=== PATIENT | female | born 1955 | race Caucasian/White ===

== ENCOUNTER 2017-12-01 16:36 | Outpatient (CLI) | payer BC ==
[2017-12-01 17:41] LABS: Hemoglobin 14.3 g/dL (12.0-16.0); Mean Corpuscular HGB CONC 33.3 g/dL (32.0-36.0); Mean Corpuscular Hemoglobin 33.3 pg (27.0-31.0); Mean Platelet Volume 8.1 fL (7.4-10.4); Platelet Count 244 thou/uL (130-400); RBC Distribution Width 12.7 % (11.5-14.5)
[2017-12-01 17:46] LABS: PTT 26.5 SEC (22.9-36.1); Prothrombin Time 12.8 SEC (12.0-14.7)
[2017-12-01 18:17] LABS: Anion Gap 15 mmol/L (10-20); BUN (Urea Nitrogen) 19 mg/dL (9.8-20.1); Calc. Creatinine Clearance 0 mL/min (70-130); Calcium 10.2 mg/dL (7.8-10.44); Carbon Dioxide 25 mmol/L (23-31); Chloride 100 mmol/L (98-107); Estimated GFR-MDRD 51; Glucose 97 mg/dL (80-115); Potassium 3.9 mmol/L (3.5-5.1); Sodium 136 mmol/L (136-145)
== END 2017-12-01 16:37 | disposition home or self-care (01) ==
LOC: LABBT 16:36
PROVIDERS: ATTEND Urology
DX: Z01.812 Encounter for preprocedural laboratory examination (principal); C65.1 Malignant neoplasm of right renal pelvis
CPT/HCPCS: 80048; 85027; 85610; 85730; 93005; 93010

== ENCOUNTER 2017-12-06 10:55 | Day surgery (SDC) | payer BC ==
[2017-12-01 16:48] VITALS: BMI 35.0
[2017-12-06] MEDS ORDERED: Midazolam HCl 2 mg/2 ml Vial ONE (13:36)
[2017-12-06] MEDS ORDERED: CEFTRIAXONE 2GM/50 ML BAG 2 GM in Premix Bag 1 BAG IVPB SCH (13:45)
[2017-12-06] MEDS ORDERED: Fentanyl 100 MCG/2 ML VIAL ONE (14:17)
[2017-12-06] MEDS ORDERED: Iothalamate Meglumine 60% 50 ML VIAL FS ONE (14:30)
--- NOTE | 2017-12-06 16:52 | OP ---
DATE OF PROCEDURE: 12/06/2017 PREOPERATIVE DIAGNOSIS: Left renal pelvic mass. POSTOPERATIVE DIAGNOSIS: Left renal pelvic mass. PROCEDURE PERFORMED: Cystoscopy with left renal pelvic washings, left retrograde, left renal pelvic brushings, left stent placement and right retrograde. SURGEON: Patel Saxena M.D. ANESTHETIC: General. ESTIMATED BLOOD LOSS: 50 mL DRAINS PLACED: 6 x 24 Polaris double-J stent up the left ureter without a string left on it. FINDINGS: The right retrograde study was normal. The bladder showed no obvious tumor, foreign body, or stone. There was a small mucosal line lesion on the anterior wall which is probably related to h er urethral remnant, but did not look at all suspicious. The retrograde study on the left showed nor mal ureter up to the area of the renal pelvis with a large filling defect in the renal pelvis. Prior to doing this, we initially did the washings with some saline and not using any contrast and this al ready did stir up some bleeding from it. So pathology sent was urine from left renal pelvis after wa shings and left renal pelvic brushings. OPERATIVE TECHNIQUE: After obtaining written and verbal consent from the patient after receiving IV antibiotics, she was taken to the operating suite. She was placed in the supine position on the yesenia tment table. PlexiPulses were placed on her lower extremities and turned on. She was given a genera l anesthetic, oral obturator intubation. She was placed in the dorsal lithotomy position and sterile ly prepped and draped. Cystoscopy was performed with a 22 Anguillan sheath. This could not be passed t hrough the urethral meatus, as she did have some urethral stenosis and she was gently dilated with fe male sounds up to 24 Anguillan. The 22-Anguillan sheath was then easily passed into the bladder. The blad dalila was emptied and filled and emptied a number of times and was examined with both a 30-and 70-degre e lens with the findings as above. Next, a 5-Anguillan Pollack catheter was flushed with sterile saline . We had been using sterile water for all of our irrigation fluid and this was maintained, but we di d use saline and flushed our Pollack catheter, advanced this into the left ureter and pushed it up ab out 25 cm and then injected off and on, off and on withdrawing back as we did about 20-25 mL of steri le saline drawing back, injecting and drawing back and it was bloody. This was sent off for cytology from the left renal pelvis. We then went ahead and injected about 4 mL of contrast, so that we coul d fill out the renal pelvis enough to see where this tumor mass was and then through the Pollack cath eter, we placed a small brush and under fluoroscopic vision, brushed this lesion and then sent the br ushings off on slides as well as brushings itself to be examined and pathology. At this point, we lo aded a wire back through our Pollack catheter and removed the Pollack catheter and then we attempted to pass a double lumen ureteral catheter up this side, but because of the size of the ureteral orific e, we could not and for this reason, we felt we could not safely do ureteroscopy, so through our exis ting guidewire, we placed the 6 x 24 Polaris double-J stent, pushing up into place with aid of a push er, so its proximal end coiled in the renal pelvis just above this mass and its distal end coiled in the bladder. There was bloody efflux from it. At this point, we filled and emptied the bladder 5 ti mes with sterile water, brought in a new Pollack catheter that was flushed with a new 20 mL of syring e with some half and half contrast and we did a right retrograde study. It showed a normal ureter no rmal upper collecting system without filling defect. At this point, the bladder was drained, the ins truments were removed. She was taken out of dorsal lithotomy position, awakened, extubated, and take n by stretcher to the recovery room.
[2017-12-06] MEDS ORDERED: Acetaminophen 500 MG TAB ONE (17:07)
--- NOTE | 2017-12-07 08:46 | RAD ---
RETROGRADE URETEROGRAM INTRAOPERATIVE FLUOROSCOPY: History: Urinary tract obstruction. FINDINGS: Intraoperative fluoroscopy is provided for retrograde study as performed by Dr. Saxena. Multiple spot fluoroscopic images show catheter and opacification of a dilated left renal collecting system and a nondilated right renal collecting system. Final image shows double pigtail stent overlying the course of the left ureter. POS: [facility]
== END 2017-12-06 17:05 | disposition home or self-care (01) ==
LOC: SDC 10:55
PROVIDERS: ATTEND Urology
PROC: 0T9480Z Drainage of Left Kidney Pelvis with Drainage Device, Via Natural or Artificial Opening Endoscopic (ICD-10-PCS; principal; 2017-12-06)
PROC: 0T9780Z Drainage of Left Ureter with Drainage Device, Via Natural or Artificial Opening Endoscopic (ICD-10-PCS; principal; 2017-12-06)
DX: C65.1 Malignant neoplasm of right renal pelvis (principal); N35.9 Urethral stricture, unspecified; I10 Essential (primary) hypertension; E78.5 Hyperlipidemia, unspecified; F17.200 Nicotine dependence, unspecified, uncomplicated; Z79.899 Other long term (current) drug therapy; Z88.5 Allergy status to narcotic agent; Z98.51 Tubal ligation status; Z90.710 Acquired absence of both cervix and uterus; Z90.10 Acquired absence of unspecified breast and nipple; Z98.890 Other specified postprocedural states; Z85.3 Personal history of malignant neoplasm of breast; Z85.828 Personal history of other malignant neoplasm of skin
CPT/HCPCS: 74420; 88104; 88108; 88112; C1758; J0131; J0696; J2250; J3010; Q9961

== ENCOUNTER 2017-12-13 09:44 | Day surgery (SDC) | payer BC ==
[2017-12-10 09:59] VITALS: BMI 34.5
[2017-12-13] MEDS ORDERED: Fentanyl 100 MCG/2 ML VIAL ONE ×3 (10:14→15:00)
[2017-12-13] MEDS ORDERED: cefTRIAXone\\ROCEPHIN 1 GM, Syringe 0.4 ML in Sterile Water 9.6 ML SLOW IVP SCH (11:30)
[2017-12-13] MEDS ORDERED: Iothalamate Meglumine 60% 50 ML VIAL FS ONE (12:38)
[2017-12-13] MEDS ORDERED: Midazolam HCl 2 mg/2 ml Vial ONE (13:02)
[2017-12-13] MEDS ORDERED: Promethazine HCl 25 MG/ML VIAL ONE (15:34)
[2017-12-13] MEDS ORDERED: Metoclopramide HCl 10 MG/2 ML VIAL ONE (15:56)
[2017-12-13] MEDS ORDERED: Lidocaine 1% PF 5 ML VIAL ONE (15:56)
[2017-12-13] MEDS ORDERED: Propofol 200 MG/20 ML VIAL ONE (15:56)
[2017-12-13] MEDS ORDERED: Dexamethasone 20 MG/5 ML VIAL ONE (15:56)
[2017-12-13] MEDS ORDERED: Ondansetron HCl/PF 4 MG/2 ML Vial ONE (15:56)
--- NOTE | 2017-12-13 15:56 | RAD ---
RETROGRADE PYELOGRAM 1 VIEW: Date: 12/13/17 HISTORY: 65-year-old female with left hydronephrosis. COMPARISON: 12/06/17. FINDINGS: The previous retrograde pyelogram demonstrated obstruction at the left UPJ, with left hydronephrosis. On the current single image study, there is breathing motion artifact. A left ureteral catheter is v isualized with distal tip at a dilated upper pole gabe. There is extravasation of contrast material around the proximal aspect of the left ureter. There is little contrast in the left renal pelvis. IMPRESSION: 1. Left hydronephrosis is evidence for obstructive uropathy, at the ureteropelvic junction. 2. Extravasation of contrast around the proximal left ureter. POS: [facility]
[2017-12-13] MEDS ORDERED: Ketorolac Tromethamine 30 MG/ML VIAL ONE ×2 (16:24→16:34)
[2017-12-13] MEDS ORDERED: Ondansetron ODT 4 MG TAB ONE (17:00)
--- NOTE | 2017-12-14 06:26 | OP ---
DATE OF PROCEDURE: 12/13/2017 PREOPERATIVE DIAGNOSIS: Left renal pelvic filling defect/tumor. POSTOPERATIVE DIAGNOSIS: Left renal pelvic filling defect/tumor. PROCEDURE PERFORMED: Left rigid and flexible ureteroscopy with biopsy and stent replacement. SURGEON: Patel Saxena M.D. ANESTHETIC: General. ESTIMATED BLOOD LOSS: 50-75 mL FINDINGS: Her ureter is still narrow. We were able to get up to the UPJ with the rigid scope, but c ould not get up to the renal pelvis to see this tumor. With a flexible ureteroscope, we were able to get up to it twice, but could not do it through the sheath. Did two biopsies that we will send off together. It looks papillary in appearance, is certainly not smooth line, is not a stone, it is a tu mor. We were unable to get any ureteral sheath up the ureter. The largest instrument we could get u p there was a dual-lumen catheter. I had difficulty in just getting a flexible ureteroscope up. It is unclear as to why it is so difficult as on looking at the ureter along its length, there is no par ticular area of stricture, somewhat edematous from having a stent in, but just were unable to access it as well as I would have liked. OPERATIVE TECHNIQUE: After obtaining written and verbal consent from the patient after obtaining ant ibiotics IV piggyback, she was taken to the operating suite. She was placed in the supine position o n the treatment table. PlexiPulses placed on her lower extremities and turned on. She was given a g eneral anesthetic, oral intubation, placed in the dorsal lithotomy position, and sterilely prepped an d draped. A electrophysiology scientist KUB was taken with the fluoroscopy unit. Cystoscopy was performed with a 22-Frenc h sheath. This was well lubricated and passed under direct vision through the female urethra into th e urinary bladder with the aid of 30-degree lens, video camera, and monitor. The bladder was filled and emptied a couple of times. The distal end of the indwelling double-J stent was grasped and broug ht out the urethral meatus and a guidewire was fed up across it. Dual-lumen catheter was advanced up over this guidewire up to about mid ureter and then a second guidewire was advanced through this and the dual-lumen catheter was removed. We initially went in with a rigid ureteroscope over a guidewir e to get only up to the UPJ. There was no evidence of any other abnormality noted in the ureter apar t from some edema and inflammation from having a stent in for a week. There was no stone and no obvi ous tumor in the ureter. We then brought in a ureteral sheath. We tried three of them, could not ge t the obturator to go up with any of them. At this point, we dilated the distal ureter with a balloo n dilator and we were still not able to get a ureteral sheath or obturator up across either of the gu idewires. At this point, we then came in and brought in our flexible ureteroscope and placed over on e of the guidewires, able to get this up into the renal pelvis. We took some photos of this lesion a nd did a biopsy of it. Because we did not use a sheath, we had a biopsy and then pulled the scope al l the way out to get enough specimen. The first time we did the biopsy, we tried pulling it through the scope and the specimen was lost. For this reason, we replaced the second guidewire again using a dual-lumen catheter and then removed the dual-lumen catheter and again went up with a flexible urete roscope over a guidewire. We were unable to get up at this point past the probably mid ureter just t rying to go along the guidewire, it would just start to kink and coil at the bladder, so at this poin t, we exchanged wires using a dual-lumen catheter for some stiffer wires and we were able to get back up with the flexible ureteroscope and do another biopsy, still could not get up with either the uret eral sheaths or obturators. At this point, it was felt that we could obtain no other biopsies and we went ahead and removed one of the wire, the other wire we backloaded through the cystoscope and went up with a 5-Andorran catheter, removed the wire, and injected contrast. There was a small amount of e xtravasation up in either proximal ureter/renal pelvic region. Guidewires were placed and initially tried to place a 7-Andorran stent in hopes of getting her ureter to enlarge, but it would not go up, so we again went up with a 6-Andorran 26 cm stent proximal end coiled in the upper pole calyx, the distal end coiled in the bladder when the wire was removed. It was draining adequately bloody stained urin e. The patient was then awakened, extubated, and taken by stretcher to the recovery room.
== END 2017-12-13 17:50 | disposition home or self-care (01) ==
LOC: SDC 09:44
PROVIDERS: ATTEND Urology
DX: C65.2 Malignant neoplasm of left renal pelvis (principal); I10 Essential (primary) hypertension; E78.5 Hyperlipidemia, unspecified; F17.200 Nicotine dependence, unspecified, uncomplicated; Z79.899 Other long term (current) drug therapy; Z88.5 Allergy status to narcotic agent; Z98.51 Tubal ligation status; Z90.10 Acquired absence of unspecified breast and nipple; Z90.710 Acquired absence of both cervix and uterus; Z98.890 Other specified postprocedural states; Z98.891 History of uterine scar from previous surgery; Z85.3 Personal history of malignant neoplasm of breast; Z85.828 Personal history of other malignant neoplasm of skin
CPT/HCPCS: 74420; 88305; 96374; 96375; A4216; C1758; J0696; J1100; J1885; J2001; J2250; J2405; J2550; J2704; J2765; J3010; Q0162; Q9961

== ENCOUNTER 2018-01-10 11:02 | Outpatient (CLI) | payer BC ==
--- NOTE | 2018-01-10 12:02 | RAD ---
PA AND LATERAL CHEST: HISTORY: Renal cancer. FINDINGS: Heart size is within normal limits. There are atherosclerotic changes of the aorta. Lungs are clear of infiltrate. Surgical clips are seen overlying the left chest. A partially visualized left urete ral stent is noted. No pulmonary nodules are seen. There are some minimal arthritic changes of the thoracic spine. IMPRESSION: No active intrathoracic disease. POS: [facility]
== END 2018-01-10 11:03 | disposition home or self-care (01) ==
LOC: RAD 11:02
PROVIDERS: ATTEND Urology
DX: C64.2 Malignant neoplasm of left kidney, except renal pelvis (principal)
CPT/HCPCS: 71046

== ENCOUNTER 2018-02-03 13:13 | Outpatient (CLI) | payer BC ==
[2018-02-03 14:46] LABS: Mean Corpuscular HGB CONC 33.3 g/dL (32.0-36.0); Mean Corpuscular Hemoglobin 32.7 pg (27.0-31.0); Mean Platelet Volume 8.7 fL (7.4-10.4); Platelet Count 292 thou/uL (130-400); RBC Distribution Width 13.4 % (11.5-14.5); White Blood Cell (WBC) Count 7.6 thou/uL (4.8-10.8)
[2018-02-03 14:50] LABS: Bilirubin Negative (Negative); Blood, Urine Negative (Negative); Clarity CLEAR (Clear); Glucose, Urine (Dipstick) Negative (Negative); Leukocyte Negative (Negative); Nitrite Negative (Negative); Protein, Urine (Dipstick) Negative (Neg-Trace); Urobilinogen 0.2 mg/dL (0.2-1.0)
[2018-02-03 14:54] LABS: Bacteria/HPF Rare-Few HPF (None Seen); Hyaline Casts/LPF 0-3 HYALINE CAST LPF (0-3 Hyaline); RBC/HPF 0-3 HPF (0-3); Squamous Epithelial None Seen HPF (0-3); WBC/HPF 0-3 HPF (0-3)
[2018-02-03 14:57] LABS: PTT 27.2 SEC (22.9-36.1)
[2018-02-03 15:09] LABS: ALT (SGPT) 20 U/L (8-55); AST (SGOT) 17 U/L (5-34); Alkaline Phosphatase 107 U/L (40-150); Anion Gap 18 mmol/L (10-20); BUN (Urea Nitrogen) 24 mg/dL (9.8-20.1); Bilirubin, Total 0.6 mg/dL (0.2-1.2); Calc. Creatinine Clearance 0 mL/min (70-130); Calcium 10.3 mg/dL (7.8-10.44); Carbon Dioxide 26 mmol/L (23-31); Chloride 97 mmol/L (98-107); Estimated GFR-MDRD 52; Globulin 3.1 g/dL (2.4-3.5); Glucose 97 mg/dL (80-115); Potassium 3.8 mmol/L (3.5-5.1); Protein, Total 8.1 g/dL (6.0-8.3); Sodium 137 mmol/L (136-145)
== END 2018-02-03 13:14 | disposition home or self-care (01) ==
LOC: LABBT 13:13
PROVIDERS: ATTEND Urology
DX: Z01.818 Encounter for other preprocedural examination (principal); C64.2 Malignant neoplasm of left kidney, except renal pelvis
CPT/HCPCS: 80053; 81001; 85027; 85610; 85730; 87086

== ENCOUNTER 2018-02-03 13:30 | Inpatient (IN) | payer BC ==
[2018-02-03 13:48] VITALS: BMI 35.4
[2018-02-17] MEDS ORDERED: Albumin 5% 0 ML ONE (06:17)
[2018-02-17] MEDS ORDERED: Ketamine 50 MG/ML VIAL ONE (06:17)
[2018-02-17] MEDS ORDERED: Fentanyl 100 MCG/2 ML VIAL ONE ×3 (06:17→15:06)
[2018-02-17] MEDS ORDERED: Midazolam HCl 2 mg/2 ml Vial ONE (06:17)
[2018-02-17] MEDS ORDERED: Fentanyl 250 MCG/5 ML VIAL ONE ×2 (06:17→11:35)
[2018-02-17] MEDS ORDERED: CEFAZOLIN/Water 2 GM/20 ML SYRINGE SLOW IVP SCH (07:00)
[2018-02-17] MEDS ORDERED: Bupivacaine/Epinephrine 0.25% 30 ML VIAL ONE ×2 (07:08→13:25)
[2018-02-17] MEDS ORDERED: Scopolamine 1.5 mg/72 hour Patch ONE (07:09)
[2018-02-17] MEDS ORDERED: CEFAZOLIN/Water 2 GM/20 ML SYRINGE ONE (07:19)
[2018-02-17] MEDS ORDERED: Levofloxacin 500 mg/D5W 100 ml Premix Bag ONE (07:19)
[2018-02-17] MEDS ORDERED: Rocuronium Bromide 50 MG/5 ML VIAL ONE (11:35)
[2018-02-17] MEDS ORDERED: Meperidine HCl/PF 25 MG/ML VIAL SLOW IVP PRN (11:58)
[2018-02-17] MEDS ORDERED: Promethazine HCl 25 MG/ML VIAL SLOW IVP PRN (11:58)
[2018-02-17] MEDS ORDERED: Heparin 5,000 UNITS/ML VIAL ONE (12:22)
[2018-02-17] MEDS ORDERED: HYDROcodone/Acetaminophen 7.5/325 mg Tablet PO PRN (13:33)
[2018-02-17] MEDS ORDERED: Bisacodyl 10 MG SUPP PR PRN (13:33)
[2018-02-17] MEDS ORDERED: hydrALAZINE 20 MG/ML VIAL SLOW IVP PRN (13:33)
[2018-02-17] MEDS ORDERED: Oxybutynin 5 MG TAB PO PRN (13:33)
[2018-02-17] MEDS ORDERED: Hyoscyamine Sulfate SL 0.125 mg Tablet SL PRN (13:33)
[2018-02-17] MEDS ORDERED: diphenhydrAMINE 25 MG CAP PO PRN (13:33)
[2018-02-17] MEDS ORDERED: cefOXitin 1.5 GM in Sodium Chloride 0.9% 100 ML IVPB SCH (14:00)
[2018-02-17] MEDS ORDERED: Heparin 10,000 UNITS/ 10 ML VIAL ONE (14:12)
[2018-02-17] MEDS ORDERED: Lidocaine 1% PF 5 ML VIAL ONE (14:12)
[2018-02-17] MEDS ORDERED: PHENYLEPHRINE-NS 100 MCG/ML 10 ML SYRINGE ONE (14:12)
[2018-02-17] MEDS ORDERED: Ondansetron HCl/PF 4 MG/2 ML Vial ONE (14:12)
[2018-02-17] MEDS ORDERED: PROPOFOL 200 MG/20 ML VIAL ONE (14:12)
[2018-02-17] MEDS ORDERED: Promethazine HCl 25 MG/ML VIAL ONE (14:12)
[2018-02-17] MEDS ORDERED: Dexamethasone 20 MG/5 ML VIAL ONE (14:12)
[2018-02-17] MEDS ORDERED: Glycopyrrolate 0.2 MG/ML 5 ML SYRINGE ONE (14:12)
[2018-02-17] MEDS ORDERED: Morphine 4 MG/ML VIAL SLOW IVP PRN (14:30)
--- NOTE | 2018-02-17 15:43 | RAD ---
PORTABLE UPRIGHT FRONTAL CHEST RADIOGRAPH: Date: 02-17-18 Comparison: 01-10-18 History: Evaluate for left sided pneumothorax, recent left renal surgery. FINDINGS: There is a questionable tiny apical pneumothorax on the left. Evaluation is limited secondary to subc utaneous emphysema which is seen overlying the left hemithorax, primarily laterally, extending into t he left supraclavicular region. No right sided pneumothorax is seen. No lobar consolidation or alveol ar edema. Post-surgical clips are seen in the left upper quadrant of the abdomen. IMPRESSION: Questionable small pneumothorax in left lung apex. Subcutaneous gas noted on the left. Results called to Dr. Arguelles at 2:20 p.m. 02-17-18. Code CR POS: [facility]
[2018-02-17] MEDS ORDERED: cefOXitin 1.5 GM, Admixture Fee 1 EACH in Sterile Water 8.33 ML SLOW IVP SCH (16:00)
[2018-02-17] MEDS: Sodium Chloride 0.9% 1,000 ML IV SCH ×2 (18:09→20:43)
[2018-02-17] MEDS ORDERED: Promethazine HCl 25 MG/ML VIAL IM/IV PRN (19:04)
[2018-02-17] MEDS ORDERED: Ondansetron HCl/PF 4 MG/2 ML Vial SLOW IVP PRN (19:05)
[2018-02-17] MEDS ORDERED: Promethazine HCl 25 MG/ML VIAL IM/IV SCH (19:15)
--- NOTE | 2018-02-17 19:26 | OP ---
DATE OF PROCEDURE: 02/17/2018 SERVICE: Urology. SURGEON: Roddy Arguelles MD DEGREASING SOLUTION MIXER: Leonor Prather MD LINE TENDER FLAKEBOARD: Jessica Ridley. PREOPERATIVE DIAGNOSIS: Left upper tract urothelial carcinoma. POSTOPERATIVE DIAGNOSIS: Left upper tract urothelial carcinoma. PROCEDURE PERFORMED: Laparoscopic left radical nephroureterectomy via the retroperitoneal approach. INDICATION FOR PROCEDURE: Ms. Antony is a 62-year-old white female, who was referred to me by Dr. Taisha sigala for a left upper tract urothelial carcinoma. This was confirmed on biopsy as urothelial carcinom a. It was low grade only without any demonstrable radiographic evidence of muscle invasive disease. Therefore, Medical Oncology did not wish to perform neoadjuvant chemotherapy, although she was refer red for this purpose. As such, she is now proceeding straight to nephroureterectomy to remove her bu lky upper tract disease. Risks and benefits of the surgery have been discussed and she has agreed to proceed forward. DESCRIPTION OF PROCEDURE: After identification of armband and verification of consent, the patient w as brought back to the operating room where she underwent general anesthesia, endotracheal intubation . She was then placed in dorsal lithotomy position and prepped and draped in usual sterile fashion. After appropriate time-out, the urethra was gently dilated with Willy sounds. A Sanchez knife, resectoscope, 26-Vietnamese sheath was inserted with the obturator initially into the bladder and then sw itched out for the Sanchez knife monopolar resectoscope. Resection of the ureteral orifice was perfo rmed on the left side using the cutting current circumferentially around the ureter until the perives ical fat was identified. Once this was done, the coag function was used to cauterize any small bleed ers. Once the ureter was adequately scored, the cystoscope was withdrawn and a 20-Vietnamese 3-way Renae catheter was inserted into the bladder. The patient was then repositioned into the right lateral de cubitus full flank position with the bed flexed, kidney rest up. All pressure points were padded. S he was then again reprepped and draped in the usual sterile fashion. Entry was made into the retrope ritoneum via a small incision just below the 11th rib along the mid axillary line. Blunt finger diss ection was used to penetrate the lumbodorsal fascia into the retroperitoneal space. The psoas muscle was identified and swept free from the surrounding tissues. Once the psoas muscle was completely mo bilized, a Spacemaker balloon was then insufflated into the retroperitoneal space. This was pumped u p to 40 pumps with direct visualization on the inside for monitoring of the correct location. The Sp acemaker balloon was then taken out and the balloon port inflated and secured. Insufflation into ret roperitoneum was started and the additional right-handed 11-mm port was placed near the angle of the 12th rib and the erector muscles for the right hand and a 5-mm port on the left hand closer to the pe ritoneal reflection, but not through the peritoneum. Upon entry into the retroperitoneum, it was judy lized that psoas muscle had gotten swept somewhat medially and pushed medial, so the psoas muscle was dissected free from the overlying Gerota fascia and relayed back onto the erector muscles. No injur y to any nervous tissue or the muscle was identified. The psoas was then dissected free of Gerota, a ll the way up to the diaphragm. The ureter was then dissected free and traced upward until the acces amy renal artery was identified at the lower pole. Dissection was then carried up further until the renal artery was identified with the bifurcated venous structure surrounding. The superior aspect o f the renal vein was dissected free using a LigaSure to cauterize any small vessel. The adrenal vein was identified and spared, so that the adrenal gland could be left in situ. Once the entire renal h ilum was dissected free of its surrounding tissues, the accessory renal artery was first clamped with a Hem-o-nawaf clip and then double clipped with titanium clips, and the intervening tissue divided wit h the LigaSure. The gonadal vein was also clipped and divided with the LigaSure. The vascular loade d 60-mm stapler was then used to completely staple the hilum distal to the adrenal vein to spare the adrenal vein to the adrenal gland. Once this was completed, there was excellent hemostasis along the renal hilum. The superior pole of the kidney was dissected right along the capsule to save the Ash ta fat on the superior aspect of the kidney to spare the adrenal gland. The entire superior pole of the kidney was dissected free and Gerota was left intact on the inferior pole of the kidney, in case there was any potential perirenal extension of the urothelial carcinoma. The kidney was dissected fr ee of all surrounding attachments. The spleen and pancreas were not visualized indicating that they were outside the surgical field. Loops of bowel were identified and there was a small entry made int o the peritoneal space, although there was no actual bowel injury made. The ureter was dissected indira e, also down to the iliac vessels, and the entire kidney was pushed down into the left inguinal space . FloSeal was applied over the vascular structure, where the renal hilum was clamped and over the ad renal bed. The insufflation was then taken down and all ports removed. The fascia was closed with a n interrupted 0 Vicryl on a UR-6 needle, and the skin closed with a 4-0 Monocryl in a subcuticular fa shion. Dermabond was applied and the patient was then taken out of that positioning and placed supin e with a shallow elevation of her left side with the bed slightly flexed to expose the left inguinal space. She was then reprepped and draped again in the usual sterile fashion. A Kay incision was then made through her previous TRAM flap scar over to above the anterior superior iliac spine. Disse ction was then carried down with Bovie electrocautery through the external internal oblique aponeuros is until the retroperitoneal space was identified. The rectus muscle was medial enough that it could be swept medially. The epigastric muscles were also intact and were spared and kept below the rectu s muscle. The external iliac artery was identified and dissected upward until the retroperitoneal sp j carlos was encountered. The kidney was immediately palpated and brought out through the retroperitoneal space on the flank. The periureteral tissues were dissected free to allow for exposure of the urete r down towards the bladder. A Bookwalter was then placed in to allow for adequate exposure and the u reteral dissection was then carried distally all the way up to the bladder. The sigmoid colon was in very close proximity to the bladder and ureter and great care was taken not to cause a thermal injur y onto the sigmoid colon. The ureter was dissected to the level of the bladder, and then with some d issection and elevation of the ureter, it was able to be popped free due to the previous ureteral sca rring. The tip of the ureter was inspected and found that the urothelium was intact indicating the f ull ureter was removed, including the small amount of bladder cuff. The hole was then closed with a [id number] 2-0 Vicryl and two previously placed 2-0 Vicryl stay sutures on the bladder, which we re then tied to each other and to the previous stitch to close up the cystotomy. The bladder was robert led using the continuous bladder irrigation, which had previously been hooked up with the outflow cla mp and the bladder was filled and no leak was identified. The bladder was then drained out and the r etroperitoneal space washed out. Tisseel was applied around the area of the cystotomy and over the i liac vessels. A #19 flat JUAN F drain was then brought in through a small puncture site above the incisi on line. This was placed into the retroperitoneum and away from the iliac vessels and cystotomy, but the bottom end of the drain is towards the pelvis. The retractors were all then taken out and the f ascia closed in two layers with the internal oblique and then external oblique aponeurosis closed in a running fashion using a #1 PDS. Dar was applied to the subcutaneous tissues after the incision had been copiously irrigated and dried. Hemostasis was achieved with Bovie electrocautery prior to t he Dar placement. The skin was then closed with skin charito and an island dressing applied. A s ubcutaneous injection was performed with 0.25% Marcaine with epinephrine. The 20-Vietnamese 3-way Renae catheter was then removed and switched out for an 18-Vietnamese 2-way Renae catheter with 10 mL of steril e water in the balloon. This was hooked up to gravity drainage and secured with a StatLock on to the patient's leg. The patient was then awakened and taken to PACU for recovery in stable condition. COMPLICATIONS: None. ESTIMATED BLOOD LOSS: Approximately 100 mL. RETAINED TUBES AND DRAINS: A #19 JUAN F drain and an 18-Vietnamese Renae catheter. SPECIMENS: Left kidney and ureter. DISPOSITION: The patient will be admitted to the hospital for postoperative recovery. Once she is a dequately recovered, she can be discharged and have her followup on an outpatient basis. She will ne ed to keep the catheter in for at least 7 days with a cystogram done prior to ensure that the cystoto my was completely closed before catheter removal.
[2018-02-17] MEDS: Ondansetron HCl/PF 4 MG/2 ML Vial IVP PRN (19:31)
[2018-02-17] MEDS: Morphine 4 MG/ML VIAL SLOW IVP PRN ×2 (19:45→23:55)
[2018-02-17] MEDS: Mag-Al 1200 mg/1200 mg/30 ML UDCUP PO PRN (20:42)
[2018-02-17] MEDS: Docusate 100 MG CAP PO SCH (20:42)
[2018-02-18] MEDS: Mag-Al 1200 mg/1200 mg/30 ML UDCUP PO PRN
[2018-02-18] MEDS: Ondansetron HCl/PF 4 MG/2 ML Vial IVP PRN (02:36)
[2018-02-18] MEDS: Morphine 4 MG/ML VIAL SLOW IVP PRN ×2 (02:36→05:13)
[2018-02-18] MEDS: cefOXitin 1.5 GM, Admixture Fee 1 EACH in Sterile Water 8.33 ML SLOW IVP SCH ×2 (05:13→12:59)
[2018-02-18 05:41] LABS: #Lymphocytes 1.2 thou/uL (1.20-3.40); #Monocytes 0.8 thou/uL (0.11-0.59); #Neutrophils 8.6 thou/uL (1.40-6.50); %Basophils 0.3 % (0.0-1.0); %Eosinophils 0.1 % (0.0-10.0); %Lymphocytes 11.1 % (21.0-51.0); %Monocytes 7.9 % (0.0-10.0); %Neutrophils 80.6 % (42.0-75.0); Hemoglobin 10.8 g/dL (12.0-16.0); Mean Corpuscular HGB CONC 33.3 g/dL (32.0-36.0); Mean Corpuscular Hemoglobin 32.3 pg (27.0-31.0); Mean Corpuscular Volume 97.1 fl (81.0-99.0); Mean Platelet Volume 7.9 fL (7.4-10.4); Platelet Count 262 thou/uL (130-400); RBC Distribution Width 13.7 % (11.5-14.5); Red Blood Cell (RBC) Count 3.34 mill/uL (4.20-5.40); White Blood Cell (WBC) Count 10.6 thou/uL (4.8-10.8)
[2018-02-18 06:00] LABS: Anion Gap 10 mmol/L (10-20); BUN (Urea Nitrogen) 18 mg/dL (9.8-20.1); Calc. Creatinine Clearance 57 mL/min (70-130); Calcium 8.7 mg/dL (7.8-10.44); Carbon Dioxide 26 mmol/L (23-31); Chloride 105 mmol/L (98-107); Estimated GFR-MDRD 37; Glucose 119 mg/dL (80-115); Potassium 4.2 mmol/L (3.5-5.1); Sodium 137 mmol/L (136-145)
[2018-02-18] MEDS: Sodium Chloride 0.9% 1,000 ML IV SCH ×3 (08:10→23:30)
[2018-02-18] MEDS: Lisinopril/Hydrochlorothiazide 20 mg/12.5 mg Tablet PO SCH (08:10)
[2018-02-18] MEDS: HYDROcodone/Acetaminophen 7.5/325 mg Tablet PO PRN ×4 (08:11→23:27)
[2018-02-18] MEDS: Docusate 100 MG CAP PO SCH ×2 (08:11→21:20)
[2018-02-18] MEDS: Atorvastatin Calcium 40 MG TAB PO SCH (08:11)
--- NOTE | 2018-02-18 12:44 | PRG ---
DATE OF SERVICE: 02/18/2018 SUBJECTIVE: The patient states she is doing pretty well. She did have some fairly severe nausea las t night, which was treated with Phenergan, and she felt much better afterwards. She was made n.p.o. last night, but did not have any further nausea or vomiting after the Phenergan. She has not gotten up out of bed today. She has not passed any gas. She is resting comfortably and states her pain is well controlled with [place] which she took. OBJECTIVE: VITAL SIGNS: Temperature 99.2, pulse 92, respirations 18, blood pressure 108/63, O2 saturation 94% o n 2 liters nasal cannula. GENERAL: No apparent distress, resting comfortably. CARDIOVASCULAR: Regular rate and rhythm. CHEST: No increased work of breathing, bibasilar crackles. ABDOMEN: Soft, appropriately tender to palpation, nondistended. Incision is dressed. JUAN F is serosan guineous. GENITOURINARY: Renae catheter in place, secured with clear yellow urine. EXTREMITIES: No clubbing, cyanosis or edema. SCDs in place. LABORATORY DATA: The full set of labs in the [facility] system, which I reviewed. Of note, the patien t's white count is 10.6 with hemoglobin of 10.8, creatinine is currently 1.42. ASSESSMENT: A 62-year-old white female with left upper tract urothelial carcinoma, status post left laparoscopic nephroureterectomy postoperative day 1. She is doing much better and as expected for he r postoperative recovery. I have asked that she get up out of bed today and start ambulating. She n eeds to keep a Renae catheter in for at least 7 days. She did have a small interval pneumothorax dur ing her surgery which has been treated with nasal cannula. I will have her continue on the nasal can nula. We will plan for another chest x-ray today to ensure that she is having resolution of the pneu mothorax. I have asked her to continue incentive spirometry, keep her pain controlled with p.o. pain medication. PLAN: She can resume clear liquids today, but I would not advance her diet to a regular diet until s he starts passing gas. We will continue to monitor her labs. Dr. Prather will be covering for me ovbell r the weekend and will continue to see the patient in my stead. We are anticipating hopefully a disc harge on Wednesday or Wednesday depending on her progress. The patient does have a mild acute kidney inju ry with a creatinine of 1.42. I will keep her on IV fluids for now despite the clear liquid diet ens ure she is well hydrated. The IV fluids can probably be stopped tomorrow. She is taking in enough p .o. fluids.
--- NOTE | 2018-02-18 14:12 | RAD ---
CHEST 1 VIEW: HISTORY: Assess for pneumothorax. COMPARISON: Radiograph prior day. FINDINGS: There is small volume free air under the hemidiaphragm which on the prior examination notes and was s upposed to be expected due to insufflation. No significant left-sided apical pneumothorax is appreciated. Small volume subcutaneous emphysema is improving. IMPRESSION: 1. No significant apical pneumothorax appreciated on this upright exam. 2. Improving subcutaneous emphysema. 3. Small volume free air under the hemidiaphragms which on the prior examination the notes state katlyn t there was expected air under the hemidiaphragms due to insufflation. POS: [facility]
[2018-02-18] MEDS: diphenhydrAMINE 25 MG CAP PO PRN (21:20)
[2018-02-19] MEDS: diphenhydrAMINE 25 MG CAP PO PRN (04:15)
[2018-02-19] MEDS: Morphine 4 MG/ML VIAL SLOW IVP PRN (04:16)
[2018-02-19 05:32] LABS: #Eosinphils 0.1 thou/uL (0.0-0.7); #Lymphocytes 0.9 thou/uL (1.20-3.40); #Monocytes 0.5 thou/uL (0.11-0.59); #Neutrophils 8.1 thou/uL (1.40-6.50); %Basophils 0.2 % (0.0-1.0); %Eosinophils 1.3 % (0.0-10.0); %Lymphocytes 9.4 % (21.0-51.0); %Monocytes 5.1 % (0.0-10.0); %Neutrophils 84.1 % (42.0-75.0); Hemoglobin 10.2 g/dL (12.0-16.0); Mean Corpuscular HGB CONC 33.9 g/dL (32.0-36.0); Mean Platelet Volume 7.9 fL (7.4-10.4); Platelet Count 223 thou/uL (130-400); RBC Distribution Width 13.5 % (11.5-14.5); White Blood Cell (WBC) Count 9.7 thou/uL (4.8-10.8)
[2018-02-19 05:57] LABS: Anion Gap 8 mmol/L (10-20); BUN (Urea Nitrogen) 13 mg/dL (9.8-20.1); Calc. Creatinine Clearance 59 mL/min (70-130); Calcium 8.3 mg/dL (7.8-10.44); Carbon Dioxide 26 mmol/L (23-31); Chloride 106 mmol/L (98-107); Estimated GFR-MDRD 38; Glucose 94 mg/dL (80-115); Potassium 4.1 mmol/L (3.5-5.1); Sodium 136 mmol/L (136-145)
[2018-02-19] MEDS: Atorvastatin Calcium 40 MG TAB PO SCH (08:56)
[2018-02-19] MEDS: Lisinopril/Hydrochlorothiazide 20 mg/12.5 mg Tablet PO SCH (08:56)
[2018-02-19] MEDS: Sodium Chloride 0.9% 1,000 ML IV SCH ×2 (08:57→16:42)
[2018-02-19] MEDS: Docusate 100 MG CAP PO SCH ×2 (08:57→21:10)
[2018-02-19] MEDS: HYDROcodone/Acetaminophen 7.5/325 mg Tablet PO PRN ×3 (09:01→21:10)
[2018-02-19] MEDS: Promethazine HCl 25 MG/ML VIAL IM/IV PRN ×3 (09:03→21:10)
--- NOTE | 2018-02-19 15:21 | PRG ---
DATE OF SERVICE: 02/19/2018 SUBJECTIVE: The patient did well overnight, but this morning, she has significant pain present all o f her back and neck, not specifically in the abdomen. She walked 3 times yesterday, but she is not d oing so well on the incentive spirometer. Her nausea is gone. She has minimal burping. She does fe el some rumbling in her abdomen, but has not passed gas. PHYSICAL EXAMINATION: VITAL SIGNS: T-max 99.9. Vitals otherwise has been stable. She put 2200 out of urine and only 10 f rom the JUAN F. HEART: Regular rate and rhythm. LUNGS: Clear to auscultation bilaterally. Decreased breath sounds in the left base. ABDOMEN: Her abdomen was softly distended with the incision still covered with a dressing. She did have some bowel sounds present. EXTREMITIES: Her lower extremities are without edema and pink and warm. LABORATORY DATA: Reveal a creatinine of 1.38 from 1.42. Her H&H is stable at 10.2 and 30.0. ASSESSMENT AND PLAN: We have a 62-year-old female status post left retroperitoneal nephroureterectom y with the open portion for a ureterectomy, postop day #2, doing well with some pain issues. We revi ewed the incentive spirometer, and her goal is getting that at least up to a 1000, but she is only 50 0 now and ambulating at least 5 times today. Continue pain medicines and Benadryl as needed. Contin ue clears for now until she passes gas.
[2018-02-20] MEDS: Sodium Chloride 0.9% 1,000 ML IV SCH ×2 (02:16→08:56)
[2018-02-20] MEDS: Promethazine HCl 25 MG/ML VIAL IM/IV PRN (07:16)
[2018-02-20] MEDS: HYDROcodone/Acetaminophen 7.5/325 mg Tablet PO PRN ×3 (07:16→22:10)
[2018-02-20 08:24] LABS: #Eosinphils 0.2 thou/uL (0.0-0.7); #Lymphocytes 0.9 thou/uL (1.20-3.40); #Monocytes 0.6 thou/uL (0.11-0.59); #Neutrophils 7.7 thou/uL (1.40-6.50); %Basophils 0.2 % (0.0-1.0); %Eosinophils 1.9 % (0.0-10.0); %Lymphocytes 9.8 % (21.0-51.0); %Neutrophils 82.2 % (42.0-75.0); Hemoglobin 9.7 g/dL (12.0-16.0); Mean Corpuscular HGB CONC 32.6 g/dL (32.0-36.0); Mean Corpuscular Hemoglobin 32.6 pg (27.0-31.0); Mean Corpuscular Volume 99.8 fl (81.0-99.0); Platelet Count 218 thou/uL (130-400); RBC Distribution Width 13.2 % (11.5-14.5); Red Blood Cell (RBC) Count 2.98 mill/uL (4.20-5.40); White Blood Cell (WBC) Count 9.4 thou/uL (4.8-10.8)
[2018-02-20 08:26] LABS: Anion Gap 12 mmol/L (10-20); BUN (Urea Nitrogen) 11 mg/dL (9.8-20.1); Calc. Creatinine Clearance 68 mL/min (70-130); Calcium 8.4 mg/dL (7.8-10.44); Carbon Dioxide 23 mmol/L (23-31); Chloride 104 mmol/L (98-107); Estimated GFR-MDRD 45; Glucose 87 mg/dL (80-115); Potassium 4.1 mmol/L (3.5-5.1); Sodium 135 mmol/L (136-145)
[2018-02-20] MEDS: Atorvastatin Calcium 40 MG TAB PO SCH (08:54)
[2018-02-20] MEDS: Lisinopril/Hydrochlorothiazide 20 mg/12.5 mg Tablet PO SCH (08:55)
[2018-02-20] MEDS: Docusate 100 MG CAP PO SCH ×2 (08:55→22:11)
[2018-02-20] MEDS: diphenhydrAMINE 25 MG CAP PO PRN ×2 (14:31→22:10)
[2018-02-21] MEDS: HYDROcodone/Acetaminophen 7.5/325 mg Tablet PO PRN ×3 (02:47→12:44)
[2018-02-21] MEDS: diphenhydrAMINE 25 MG CAP PO PRN ×3 (02:47→12:44)
[2018-02-21 05:57] LABS: #Eosinphils 0.3 thou/uL (0.0-0.7); #Lymphocytes 1.5 thou/uL (1.20-3.40); #Monocytes 0.6 thou/uL (0.11-0.59); #Neutrophils 4.7 thou/uL (1.40-6.50); %Basophils 0.3 % (0.0-1.0); %Eosinophils 3.7 % (0.0-10.0); %Lymphocytes 21.4 % (21.0-51.0); %Monocytes 8.7 % (0.0-10.0); Hemoglobin 10.4 g/dL (12.0-16.0); Mean Corpuscular HGB CONC 32.9 g/dL (32.0-36.0); Mean Corpuscular Hemoglobin 32.4 pg (27.0-31.0); Mean Corpuscular Volume 98.6 fl (81.0-99.0); Mean Platelet Volume 7.7 fL (7.4-10.4); Platelet Count 262 thou/uL (130-400); RBC Distribution Width 13.2 % (11.5-14.5); White Blood Cell (WBC) Count 7.2 thou/uL (4.8-10.8)
[2018-02-21 06:31] LABS: Anion Gap 11 mmol/L (10-20); BUN (Urea Nitrogen) 12 mg/dL (9.8-20.1); Calc. Creatinine Clearance 59 mL/min (70-130); Calcium 8.7 mg/dL (7.8-10.44); Carbon Dioxide 26 mmol/L (23-31); Chloride 103 mmol/L (98-107); Estimated GFR-MDRD 39; Glucose 101 mg/dL (80-115); Potassium 3.7 mmol/L (3.5-5.1); Sodium 136 mmol/L (136-145)
[2018-02-21] MEDS: Docusate 100 MG CAP PO SCH (08:03)
[2018-02-21] MEDS ORDERED: Atorvastatin Calcium 20 MG TAB PO SCH (09:00)
[2018-02-21] MEDS: Lisinopril/Hydrochlorothiazide 20 mg/12.5 mg Tablet PO SCH (09:47)
--- NOTE | 2018-02-21 10:02 | PRG ---
DATE OF SERVICE: 02/20/2018 SUBJECTIVE: The patient did well overnight. She has passed gas. She is hungry. Her breathing is stabilized and the oxygen just came off. She has been ambulating, but only four times and she still can barely do 1000 on the incentive spirometer. Her pain is stabilized. OBJECTIVE: VITAL SIGNS: T-max 99.3, current 97.9, 106/74 and heart rate 76, satting 98% on 2 liters. I have not seen when it is off of the oxygen yet. Her urine output was excellent with over 4 liters over the last day. HEART: Regular rate and rhythm. No murmurs, gallops or rubs. LUNGS: Clear to auscultation bilaterally. ABDOMEN: Softly distended with hypoactive bowel sounds. The incision was clean and intact with charito. I took the dressing off. JUAN F had serosanguineous drainage with minimal output. MUSCULOSKELETAL: She had no significant lower extremity edema. ASSESSMENT: We have a 62-year-old female status post left nephroureterectomy, doing well with some decreased pulmonary function, but improving. She can have her diet advanced today. Increase her ambulation and work more on pulmonary toilet. If she continues to do well and is able to stay off the oxygen, then we can anticipate discharge tomorrow after getting her drain out. TOREY
--- NOTE | 2018-02-21 10:08 | PQF ---
CLINICAL DOCUMENTATION IMPROVEMENT CLARIFICATION FORM: ICD-10 Updated PLEASE DO AN ADDENDUM TO THE PROGRESS NOTE WITH ANY DOCUMENTATION UPDATES OR ADDITIONS AND CARRY THROUGH TO DC SUMMARY. THANK YOU. DATE: 02/21 ATTN: DR. LUCÍA YA Please exercise your independent, professional judgment in responding to the clarification form. Clinical indicators are provided on the bottom of this form for your review. Please check appropriate box(s): PROGRESS NOTE DOCUMENTATION DATED 02/18: ASSESSMENT: SHE DID HAVE A SMALL INTERVAL PNEUMOTHORAX DURING HER SURGERY WHICH HAS BEEN TREATED WITH NASAL CANNULA. If possible, please further clarify if this was: [X] Incidental occurrence inherent in the surgical procedure [ ] Complication of the procedure [ ] Other [ ] Unable to determine For continuity of documentation, please document condition throughout progress notes and discharge summary. Thank You. CLINICAL INDICATORS - SIGNS / SYMPTOMS / LABS PN 02/18 DOCUMENTATION OF SMALL PNEUMOTHORAX DURING SURGERY POST-OP CXR 02/17: IMPRESSION: QUESTIONABLE SMALL PNEUMOTHORAX IN LEFT LUNG APEX CXR 02/18: IMPRESSION: 1) NO SIGNIFICANT APICAL PNEUMOTHORAX APPRECIATED RISK FACTORS: LAPAROSCOPIC L RADICAL NEPHROURETERECTOMY VIA THE RETROPERITONEAL APPROACH TREATMENTS: NASAL CANNULA 2-3 L CXR (02/17 & ) THANK YOU! Marcelina (This form is maintained as a part of the permanent medical record) 2015 [employer]. All Rights Reserved Marcelina Lee RN, BSN [email or web address] Office: [phone] TOREY
[2018-02-21 11:39] VITALS: BP 102/67; TEMP 98.7
--- NOTE | 2018-02-22 14:16 | DIS ---
DATE OF ADMISSION: 02/17/2018 DATE OF DISCHARGE: 02/21/2018 ADMITTING DIAGNOSIS: Left upper tract urothelial carcinoma. DISCHARGE DIAGNOSES: Left upper tract urothelial carcinoma. ADMITTING PHYSICIAN: Roddy Arguelles M.D. DISCHARGING PHYSICIAN: Roddy Arguelles M.D. PROCEDURE PERFORMED: Left laparoscopic radical nephroureterectomy. BRIEF HISTORY: Mrs. Antony is a 62-year-old white female who had been worked up by Dr. Patel Saxena and found to have a left upper tract urothelial carcinoma which appeared low grade. Due to the exte nsive size of the tumor, it was elected that she should undergo a left radical nephroureterectomy. S he has elected to do this via laparoscopic approach and has been sent to me for this reason. We have discussed the surgery in detail and she is now here for said surgery. HOSPITAL COURSE: After her surgery (please see operative note for details), the patient was admitted to the hospital for postoperative recovery. She had a Renae catheter in place due to the cystotomy performed during the nephroureterectomy portion and a JUAN F drain. Her pain seemed to be pretty well co ntrolled with [place] 7.5/325 mg tablets. She had some postoperative nausea on postop day 1, but this quickly subsided and she was able to advance her diet from clear liquid diet to a regular diet, which she tolerated well. She was able to get up out of bed and walk around without much problem. She wa s found to have a small apical pneumothorax on the left immediately postoperatively and was placed on nasal cannula oxygen. Repeat chest x-ray after 2 days demonstrated complete resolution of the pneum othorax and the oxygen was discontinued. Her JUAN F continued to put out less and less fluid and was ult imately discontinued on the day of her discharge on 02/21/2018. Her laboratory evaluation remained s table. Her creatinine did demonstrate a small rise up to 1.4 and then stabilization around 1.3. At date of discharge, it was 1.37 presumably from the removal of her left kidney. She did very well oth erwise and was able to ambulate without much difficulty. On 02/21/2018, she was deemed cleared for discharge. Her JUAN F drain was removed. Her JUAN F was only putt ing out between 30-60 mL. She underwent leg bag teaching and Renae catheter care teaching and was di scharged home without further problems with her Renae catheter. DISCHARGE CONDITION: Good. DISPOSITION: Discharge to home with Renae. DISCHARGE MEDICATIONS: Include resuming all of her home medications. In addition, she was given [place] 7.5/325 mg 1-2 tabs p.o. q.4 h. p.r.n. pain, Colace 100 mg p.o. b.i.d. and levofloxacin 250 mg p.o . x1 to take on the day of her followup appointment. DISCHARGE INSTRUCTIONS: Include no heavy lifting, no strenuous activity, no submerging underwater. No driving until the catheter has been removed. She was given an instructional care on her Renae cat heter and is to notify me for any problems with her catheter, significant hematuria, vomiting, severe pain, chest pain, shortness of breath, or any other concerning signs or symptoms the patient may hav e. Her followup will be arranged for Wednesday with a VCUG done prior to remove her catheter. We wi ll carry a followup appointment from there on an outpatient basis.
--- NOTE | 2018-02-23 14:38 | PRG ---
DATE OF SERVICE: 02/21/2018 SUBJECTIVE: The patient states she is feeling very well. She is passing a lot of gas, but has not y et had a bowel movement. Her pain is completely controlled. She has a catheter draining well. She has received leg bag teaching. Her JUAN F has put out minimal amounts of fluid. She has been able to ge t up out of bed and walk without problems. Her creatinine is stable. She feels good and is ready to go home. OBJECTIVE: VITAL SIGNS: Temperature 98.8, pulse 67, respirations 16, blood pressure 100/67, saturation 94% on r oom air. GENERAL: No apparent distress, communicative and alert. CARDIOVASCULAR: Regular rate and rhythm. ABDOMEN: Soft, nontender, nondistended, positive bowel sounds. Incision is clean, dry, and intact. JUAN F serosanguineous. JUAN F was removed. CHEST: No increased work of breathing, scattered bibasilar crackles. GENITOURINARY: Renae catheter in place with clear yellow urine. EXTREMITIES: No clubbing, cyanosis or edema. LABORATORY DATA: The full set of labs in the [email or web address] system, which I have reviewed. Of note, the p atient's white count is 7.2 with hemoglobin of 10.4, creatinine is 1.37. ASSESSMENT AND PLAN: A 62-year-old white female status post left laparoscopic radical nephroureterec gillian postoperative day #4, doing very well. She has met all criteria for discharge. She will need t o go home with her catheter since she has had a cystotomy during the surgery as part of the procedure . She has no evidence of pneumothorax and does not need to be on any more oxygen. Remainder of her labs looked good. We will prepare her discharge and she can follow up with me in a few days with a V CUG to see if she is ready to have her catheter removed.
== END 2018-02-21 14:00 | disposition home or self-care (01) | DRG 657 ==
LOC: SURG A 02-17 05:46 → SJJU 02-17 14:49 → SURG A 02-18 17:57
PROVIDERS: ADMIT Urology; ATTEND Urology
PROC: 0TT14ZZ Resection of Left Kidney, Percutaneous Endoscopic Approach (ICD-10-PCS; principal; 2018-02-17)
PROC: 0TT74ZZ Resection of Left Ureter, Percutaneous Endoscopic Approach (ICD-10-PCS; 2018-02-17)
PROC: 0T174ZB Bypass Left Ureter to Bladder, Percutaneous Endoscopic Approach (ICD-10-PCS; 2018-02-17)
DX: C64.2 Malignant neoplasm of left kidney, except renal pelvis (principal); C66.2 Malignant neoplasm of left ureter; N17.9 Acute kidney failure, unspecified; Z85.3 Personal history of malignant neoplasm of breast; I10 Essential (primary) hypertension; E78.00 Pure hypercholesterolemia, unspecified; F17.210 Nicotine dependence, cigarettes, uncomplicated
CPT/HCPCS: 36415; 71045; 80048; 85025; 88307; A4216; C1727; J0131; J0694; J1100; J1644; J1956; J2001; J2250; J2270; J2405; J2550; J2704; J3010; P9045

== ENCOUNTER 2018-02-14 10:20 | Outpatient (CLI) | payer BC | END 2018-02-14 10:21 | disposition home or self-care (01) | LOC: LABBT 10:20 | PROVIDERS: ATTEND Urology | DX: Z01.818 Encounter for other preprocedural examination (principal); C64.2 Malignant neoplasm of left kidney, except renal pelvis | CPT/HCPCS: 86850; 86900; 86901 ==

== ENCOUNTER 2018-02-23 09:40 | Outpatient (CLI) | payer BC ==
--- NOTE | 2018-02-23 13:22 | RAD ---
VCUG: HISTORY: Left kidney and left ureteral removal secondary to cancer. COMPARISON: None. EXPOSURE: 2.1 minutes. 49.047 Gy per cm2. FINDINGS: Pelvic radiograph demonstrates surgical clips. The patient was administered a total of 310 mL of contrast in a retrograde fashion. Contrast opacifi es an overall normal appearing urinary bladder. there does appear to be a small focus of contained c ontrast what may be beyond the lumen of the bladder. A small contained leak may be present, best dem onstrated on the left oblique projection. After the bladder was adequately distended, the patient di d void spontaneously. The visualized urethra is unremarkable. The patient emptied the rest of the b ladder in the bathroom. The patient was imaged after the procedure. There was a small focus of cont rast present in the midline aspect of the pelvis, which may represent a residual amount of contrast i n the urinary bladder versus a small contained leak. Post procedure image demonstrates this hyperden sity. IMPRESSION: Questionable small contained leak versus residual contrast in the midline of the bladder. Results of the study discussed with Dr. Arguelles on 02/23/2018 at 11:02 a.m. LOLY SANTOS POS: DESTINEY
== END 2018-02-23 09:41 | disposition home or self-care (01) ==
LOC: RAD 09:40
PROVIDERS: ATTEND Urology
DX: R32 Unspecified urinary incontinence (principal)
CPT/HCPCS: 51600; 74455

== ENCOUNTER 2018-10-11 08:16 | Outpatient (CLI) | payer MEDICARE, BC ==
--- NOTE | 2018-10-11 10:26 | RAD ---
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 Left nephrectomy. FINDINGS: Normal cardiac silhouette. The pulmonary vessels and hilum are normal. Costophrenic angles are clear. No consolidation or mass. No pneumothorax or osseous abnormalities. Stable surgical clips project ov er the left hemithorax. IMPRESSION: No acute cardiopulmonary process. POS: PATI
[2018-10-11 11:32] LABS: Anion Gap 12 mmol/L (10-20); BUN (Urea Nitrogen) 22 mg/dL (9.8-20.1); Calc. Creatinine Clearance 0 mL/min (70-130); Calcium 9.9 mg/dL (7.8-10.44); Carbon Dioxide 31 mmol/L (23-31); Chloride 101 mmol/L (98-107); Estimated GFR-MDRD 34; Glucose 94 mg/dL (80-115); Potassium 4.5 mmol/L (3.5-5.1); Sodium 139 mmol/L (136-145)
[2018-10-11] MEDS ORDERED: ISOVUE-370 76%-LOCM 1 ML ONE (11:42)
[2018-10-11 11:58] LABS: Bilirubin Negative (Negative); Blood, Urine Negative (Negative); Clarity CLEAR (Clear); Glucose, Urine (Dipstick) Negative (Negative); Leukocyte Negative (Negative); Nitrite Negative (Negative); Protein, Urine (Dipstick) Negative (Neg-Trace)
[2018-10-11 12:01] LABS: Bacteria/HPF None Seen HPF (None Seen); Hyaline Casts/LPF 0-3 HYALINE CAST LPF (0-3 Hyaline); RBC/HPF None Seen HPF (0-3); Squamous Epithelial None Seen HPF (0-3); WBC/HPF None Seen HPF (0-3)
[2018-10-11 12:12] LABS: Specific Gravity, Urine 1.049 (1.002-1.036)
--- NOTE | 2018-10-11 12:18 | CT ---
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 The patient notes a history of breast cancer status post left mastectomy and chemotherapy 25 years ago. COMPARISON: 11/12/2017. The lung bases are clear. The liver, spleen, pancreas, and adrenal glands are normal. No calcified gallstones are seen. Interval changes of left-sided nephrectomy are seen. No calculi are seen in the right kidney, right ureter, or the urinary bladder. No right side hydroureteral nephrosis is seen. Postcontrast images demonstrate no evidence of right renal mass. There is normal contrast excretion into the right urete r and the urinary bladder. No free air, free fluid, or lymphadenopathy is seen in the abdomen or pelvis. There are vascular becky cifications without evidence of aneurysmal dilatation of the abdominal aorta. The small bowel loops are not abnormally dilated. The patient is post hysterectomy. A few colonic diverticula are present . No osteolytic or osteoblastic lesions are noted. IMPRESSION: No evidence of metastatic disease. POS: DESTINEY
== END 2018-10-11 08:17 | disposition home or self-care (01) ==
LOC: BICCT 08:16
PROVIDERS: ATTEND Urology
DX: C64.2 Malignant neoplasm of left kidney, except renal pelvis (principal)
CPT/HCPCS: 36415; 71046; 74178; 80048; 81001; 88112

== ENCOUNTER 2019-01-03 10:38 | Outpatient (CLI) | payer MEDICARE, BC ==
--- NOTE | 2019-01-03 12:16 | MRI ---
MRI LUMBAR SPINE WITHOUT CONTRAST: Date: 01/03/19 HISTORY: M54.16 lumbar radiculopathy. COMPARISON: None. FINDINGS: No left kidney is appreciated on this examination. Right kidney is without hydroureteronephrosis. Paraspinal musculature is symmetric. No marrow infiltrative process. The conus medullaris terminates at the inferior end plate of L1. No acute fracture or malalignment. Levels are as follows: L1-2: Low grade broad based posterior disc osteophyte complex. No significant neural foraminal or sp inal canal narrowing. L2-3: Normal disc. No neural foraminal or spinal canal narrowing. L3-4: Mild posterior degenerative disc space height loss with broad based very small posterior disc osteophyte complex. Mild facet arthropathy. No significant neural foraminal or spinal canal narrowing . L4-5: Severe facet arthrosis. 2.0 mm anterolisthesis. There is remodeling of the posterior disc with bilateral subforaminal posterior disc osteophyte complexes. This causes mild neural foraminal narrow ing. No nerve root abutment is appreciated. L5-S1: Mild degenerative disc desiccation. Very small central posterior disc protrusion. No signific ant neural foraminal or spinal canal narrowing. Moderate facet arthrosis. IMPRESSION: 1. Low grade spondylosis. No significant neural foraminal narrowing. 2. Mild spinal canal narrowing, 7.0 mm, at L4-5, due to a combination of posterior disc osteophyte c omplex as well as ligamentum flavum hypertrophy and severe facet arthrosis causing 1-2 mm anterolisth esis. POS: TPC
--- NOTE | 2019-01-03 12:18 | RAD ---
LUMBAR SPINE BENDING MINIMUM 4 VIEWS: Date: 01/03/19 HISTORY: Spinal stenosis, lumbar radiculopathy. COMPARISON: MRI same date. FINDINGS: Low grade levoscoliosis. There are surgical clips in the abdomen and pelvis. There is Grade I anterolisthesis of L4 over L5, 2-3 mm, without significant translation with flexion or extension. IMPRESSION: Grade I anterolisthesis of L4 over L5 without significant translation with flexion or extension. POS: TPC
== END 2019-01-03 10:39 | disposition home or self-care (01) ==
LOC: BICMRI 10:38
PROVIDERS: ATTEND Physician Assistant Surgical
DX: M51.16 Intervertebral disc disorders with radiculopathy, lumbar region (principal); M48.061 Spinal stenosis, lumbar region without neurogenic claudication; M47.26 Other spondylosis with radiculopathy, lumbar region; M54.5 Low back pain; M43.16 Spondylolisthesis, lumbar region; M25.78 Osteophyte, vertebrae
CPT/HCPCS: 72120; 72148

== ENCOUNTER 2019-01-24 13:30 | Inpatient (IN) | payer MEDICARE, BC ==
[2019-01-24] MEDS ORDERED: Nitroglycerin 2% Ointment 1 INCH/1 GM Packet ONE (16:18)
[2019-01-24] MEDS ORDERED: Aspirin Chewable 81 MG TAB ONE (16:18)
[2019-01-24] MEDS ORDERED: Acetaminophen 325 MG TAB PO PRN (17:44)
[2019-01-24] MEDS ORDERED: Senokot S 8.6-50 MG TAB PO PRN (17:44)
[2019-01-24] MEDS ORDERED: Sodium Chloride 0.9% 1,000 ML IV SCH (19:15)
[2019-01-24] MEDS ORDERED: Communication Order-Pharmacy FS SCH (19:15)
--- NOTE | 2019-01-24 19:18 | HP ---
PRIMARY CARE PHYSICIAN: Dr. Godoy. CHIEF COMPLAINT: Chest pain. HISTORY OF PRESENT ILLNESS: Ms. Antony is a 63-year-old female, who reported to the emergency room today for intermittent chest pain on and off for the last 4 weeks. She reports that Dr. Smith has told her she has unstable angina, has recently put her on some slow-release nitroglycerin and told her to go to the ER any time she had pain. Reports that she had some pain last night, that lasted about 15 minutes, went to the [facility], was worked up and discharged home. Reports that this morning around 9, she started having the pain again, lasted for about 2 minutes and resolved after taking the nitroglycerin. The patient reports that when she has this pain, she has shortness of breath, diaphoresis, generalized weakness. She reports having a stress test at Dr. Smith's office within the last 2 weeks and reports that she believes that test was negative. Past medical history is pertinent for hypertension, hyperlipidemia, chronic low back pain, history of breast cancer 25 to 26 years ago, and reports that her left kidney removed due to some cancer on the ureter. Dr. Arguelles did that surgery. She denies any chemo or radiation after the nephrectomy, which she reports was 9 months ago. EKG here, no changes. ST segments, normal. Conduction, normal. Rates per minute were 89. [place] is normal. T-waves are normal. ER physician spoke to Dr. Smith, who would like the patient admitted and he will schedule her for a cardiac cath in the a.m. The patient will be admitted for further management. PAST MEDICAL HISTORY: As above; 1. Hyperlipidemia. 2. Hypertension. 3. Unstable angina. 4. Chronic back pain. PAST SURGICAL HISTORY: 1. Mastectomy on the left. 2. Breast reconstruction. 3. Nephrectomy on the left. PSYCHIATRIC HISTORY: Includes depression. SOCIAL HISTORY: Rarely drinks alcohol. Denies drug use. Does smoke half a pack. Reports that she has smoked for last 50 years, but is trying to quit and is down to half-a-pack a day. REVIEW OF SYSTEMS: CONSTITUTIONAL: The patient denies chills, fever. Does report weakness. EYES: Denies any eye pain, any vision changes. ENT: Denies any sore throat, rhinorrhea. CARDIOVASCULAR: Does report chest pain. Reports diaphoresis. Denies palpitations. RESPIRATORY: Denies cough. Reports shortness of breath during chest pain episodes. GI: Denies abdominal pain, nausea, vomiting, diarrhea. MUSCULOSKELETAL: Denies any falls, injuries, in specific musculoskeletal pain. SKIN: Denies any rash, any changes to skin. NEUROLOGIC: Negative review of systems. ENDOCRINE: Negative review of systems. PSYCH: Negative review of systems. All other review of systems are negative unless mentioned in the HPI. PHYSICAL EXAMINATION: VITAL SIGNS: Blood pressure 130/82, pulse is 87, respirations 18, temperature is 98.3, pO2 sats are 97% on room air. CONSTITUTIONAL: The patient is alert and oriented to person, place, and time. The patient is in no distress. HEENT: Head is atraumatic, normocephalic. Eyes; pupils are equal, round, and reactive to light. Extraocular muscles are intact. ENT; mouth exam is normal. Mucous membranes are moist. NECK: Normal range of motion. Trachea is midline. RESPIRATORY/CHEST: Breath sounds are clear. No wheezing. No rales. Chest movement is symmetrical. CARDIOVASCULAR: Regular heart rate and rhythm. Heart sounds are normal. ABDOMEN: Nontender. Bowel sounds are heard. BACK: Normal range of motion. No CVA tenderness. EXTREMITIES: Upper extremity, normal inspection. Normal range of motion. Radial pulses equal bilaterally. Lower extremity inspection is normal. Normal range of motion. Pulses are equal. NEURO: The patient is oriented to person, place, and time. Speech is normal. No focal motor or sensory deficits are noted. SKIN: Warm, dry, normal in color. ALLERGIES: CODEINE. CURRENT MEDICATIONS: 1. Nitroglycerin extended-release 2.5 mg once a day. 2. Lipitor 80 mg p.o. once a day. 3. Wellbutrin 150 mg p.o. b.i.d. 4. Lisinopril 10 mg once a day. 5. Aspirin 81 mg p.o. daily. PERTINENT LABORATORY DATA: Troponin x2 undetectable. D-dimer also negative 0.28. White blood cell count 9, hemoglobin 12.7, hematocrit 38.4, and platelet count is 236. Sodium 139, potassium 4.0, chloride 103, carbon dioxide 27, gap is 13, BUN is 24, creatinine is 1.48, estimated GFR is 35, glucose 100, calcium 9.3, AST is 13, ALT 16. Remaining liver enzymes are unremarkable. Chest x-ray shows no acute cardiopulmonary findings. IMPRESSION AND PLAN: 1. Chest pain. We will trend troponins. We will keep n.p.o. after midnight. We will consult Dr. Smith. 2. Hypertension. Restart home medications. We will trend. We will order p.r.n. medications as needed. 3. Hyperlipidemia. We will restart Lipitor. 4. Chronic kidney disease. We will keep a close eye as the patient only has 1 remaining kidney. 5. Clinical course will be done on clinical findings. Job ID: [id number]
--- NOTE | 2019-01-24 20:07 | CON ---
DATE OF CONSULTATION: REASON FOR CONSULTATION: Chest pain. HISTORY OF PRESENT ILLNESS: Ms. Antoyn is a very pleasant 63-year-old woman, who I have seen and evaluated in the past. She recently presented with chest pain and dynamic EKG changes. She underwent a noninvasive stress study on 01/17/2019, that was negative for ischemia. Her LVEF was 70%. She continues to have intermittent chest pain. She has taken nitroglycerin recently with complete resolution of pain. She was seen and evaluated in [place] [facility], where she was discharged and returned with a recurrent pain. PAST MEDICAL HISTORY: Hyperlipidemia, hypertension, ureteral cancer, breast cancer, chronic kidney disease, transitional cell carcinoma of left kidney, left mastectomy, hysterectomy, and left nephrectomy. HOME MEDICATIONS: Include: 1. Lisinopril/hydrochlorothiazide. 2. Vitamin D. 3. Omeprazole. 4. Atorvastatin. 5. Bupropion. 6. Zithromax. ALLERGIES: CODEINE AND TRAMADOL. SOCIAL HISTORY: She continues to use tobacco. REVIEW OF SYSTEMS: A 10-point review of systems is reviewed and as above, otherwise negative. PHYSICAL EXAMINATION: VITAL SIGNS: Blood pressure 120/70, pulse 80, and respirations 20. GENERAL: Patient is a pleasant woman, who is in no acute distress. The patient appears their stated age. NEUROLOGIC: The patient is alert and oriented x3 with no focal neurologic deficits. HEENT: Sclerae without icterus. Mouth has moist mucous membranes with normal pallor. NECK: No JVD. Carotid upstroke brisk. No bruits bilaterally. LUNGS: Clear to auscultation with unlabored respirations. BACK: No scoliosis or kyphosis. CARDIAC: Regular rate and rhythm with normal S1 and S2. No S3 or S4 noted. No significant rubs, murmurs, thrills, or gallops noted throughout the precordium. PMI is not displaced. There is no parasternal heave. ABDOMEN: Soft, nontender, nondistended. No peritoneal signs present. No hepatosplenomegaly. No abnormal striae. EXTREMITIES: 2+ femoral and 2+ dorsalis pedis pulses. No cyanosis, clubbing, or edema. SKIN: No gross abnormalities. Insert a new patient. PERTINENT LABORATORY DATA: D-dimer 0.28. Troponin negative. Creatinine 1.4 with a GFR of 35. IMPRESSION: 1. Recurrent chest pain. 2. Tobacco abuse. RECOMMENDATIONS: Ms. Antony certainly has risk factors for underlying coronary artery disease. Her PET study was negative for ischemia. At this point, given continued symptoms and resolution of pain with nitroglycerin and on Imdur. As her antianginal, we recommend coronary angiography with possible PCI. I discussed procedure in full detail with Ms. Antony. Risks included, not limited to , stroke, RI, need for emergency surgery, loss of limb, bleeding, and infection, as well as a reaction to the dye causing kidney failure and needing long-term dialysis. I also discussed the risks of PCI to include all of the above including coronary dissection and perforation in addition to acute stent thrombosis and restenosis. All questions were answered. I also discussed drug-coated non-drug stent placement. There is no current indication to drug-coated stent placement. I will proceed if needed. Further recommendations pending the above. Job ID: [id number]
[2019-01-24 21:50] VITALS: BMI 36.8
[2019-01-24] MEDS: Famotidine 20 MG TAB PO SCH (22:25)
[2019-01-24] MEDS ORDERED: Nitroglycerin 0.4 MG TAB (25 Tab Bottle) ONE (22:51)
[2019-01-24] MEDS ORDERED: Nitroglycerin 0.4 MG TAB (25 Tab Bottle) SL PRN (23:42)
[2019-01-25 05:01] LABS: #Eosinphils 0.1 thou/uL (0.0-0.7); #Lymphocytes 1.7 thou/uL (1.20-3.40); #Monocytes 0.5 thou/uL (0.11-0.59); #Neutrophils 3.8 thou/uL (1.40-6.50); %Basophils 0.7 % (0.0-1.0); %Eosinophils 2.2 % (0.0-10.0); %Monocytes 7.6 % (0.0-10.0); %Neutrophils 62.6 % (42.0-75.0); Hemoglobin 11.4 g/dL (12.0-16.0); Mean Corpuscular HGB CONC 33.7 g/dL (32.0-36.0); Mean Corpuscular Hemoglobin 32.6 pg (27.0-31.0); Mean Platelet Volume 8.8 fL (7.4-10.4); Platelet Count 217 thou/uL (130-400); RBC Distribution Width 13.2 % (11.5-14.5); Red Blood Cell (RBC) Count 3.48 mill/uL (4.20-5.40); White Blood Cell (WBC) Count 6.1 thou/uL (4.8-10.8)
[2019-01-25 05:20] LABS: Anion Gap 12 mmol/L (10-20); BUN (Urea Nitrogen) 28 mg/dL (9.8-20.1); Calc. Creatinine Clearance 49 mL/min (70-130); Carbon Dioxide 24 mmol/L (23-31); Chloride 107 mmol/L (98-107); Estimated GFR-MDRD 30; Glucose 104 mg/dL (80-115); Potassium 4.1 mmol/L (3.5-5.1); Sodium 139 mmol/L (136-145)
[2019-01-25] MEDS: Famotidine 20 MG TAB PO SCH (06:14)
[2019-01-25] MEDS: Sodium Chloride 0.9% 1,000 ML IV SCH ×2 (08:45→15:59)
[2019-01-25] MEDS ORDERED: Prevnar 13-Val Conj/PF 0.5 ML SYRINGE IM ONE (09:00)
[2019-01-25] MEDS ORDERED: Iopamidol 370 76% 100 ML VIAL ONE (09:53)
[2019-01-25] MEDS ORDERED: Aspirin 325 mg Enteric Coated Tablet PO SCH (11:30)
[2019-01-25 11:57] LABS: Anion Gap 13 mmol/L (10-20); BUN (Urea Nitrogen) 25 mg/dL (9.8-20.1); Calc. Creatinine Clearance 55 mL/min (70-130); Calcium 9.1 mg/dL (7.8-10.44); Carbon Dioxide 23 mmol/L (23-31); Chloride 108 mmol/L (98-107); Estimated GFR-MDRD 34; Glucose 85 mg/dL (80-115); Potassium 4.1 mmol/L (3.5-5.1); Sodium 140 mmol/L (136-145)
[2019-01-25] MEDS ORDERED: Verapamil 5 MG/2 ML VIAL ONE (12:35)
[2019-01-25] MEDS ORDERED: Nitroglycerin 100MG/250ML BOT 250 ML ONE (12:35)
[2019-01-25] MEDS ORDERED: Heparin 10,000 UNITS/1 ML VIAL ONE (12:35)
[2019-01-25] MEDS ORDERED: Sodium Chloride 0.9% 200 ML IV PRN (13:51)
[2019-01-25] MEDS ORDERED: Nitroglycerin 0.4 MG TAB (25 Tab Bottle) SL PRN (13:51)
[2019-01-25] MEDS ORDERED: Sodium Chloride 0.9% 1,000 ML IV SCH (14:00)
[2019-01-25 16:47] VITALS: BP 106/57; TEMP 97
[2019-01-25] MEDS ORDERED: buPROPion 75 MG TAB PO SCH (21:00)
[2019-01-25] MEDS ORDERED: Atorvastatin Calcium 40 MG TAB PO SCH (21:00)
--- NOTE | 2019-01-25 21:24 | DIS ---
DATE OF ADMISSION: 01/24/2019 DATE OF DISCHARGE: 01/25/2019 DISCHARGE DISPOSITION: Home. FOLLOWUP: 1. Follow up with primary care physician, Dr. Godoy in 1 week. 2. Follow up with Cardiology Dr. Smith as scheduled. The patient was seen and examined on the day of discharge. Denies any new complaints. ALLERGIES: THE PATIENT IS ALLERGIC TO CODEINE. DISCHARGE MEDICATIONS: Same as admission medications. INPATIENT PROCEDURES: The patient underwent cardiac catheterization on the day of discharge that showed normal coronaries. BRIEF HOSPITAL COURSE: The patient is a 63-year-old female with hypertension, hyperlipidemia, chronic back pain and GERD, presented to the emergency room with chest discomfort. Please refer to the history and physical for further details. The patient was admitted to the hospital with a diagnosis of chest discomfort consistent with unstable angina. The patient was evaluated by Cardiology, Dr. Smith. She takes Imdur on a daily basis, which used to help with the pain. However, lately the patient continues to have pain despite taking Imdur. She also has a history of tobacco dependence. She underwent cardiac catheterization after IV hydration that was negative. The patient has been cleared by Cardiology for discharge. FINAL DIAGNOSES: 1. Atypical chest discomfort. 2. Hypertension. 3. Hyperlipidemia. 4. Tobacco dependence. 5. Chronic kidney disease, stage 3. 6. Obesity with a BMI of 36.8. 7. Chronic anemia. SIGNIFICANT LABS: 1. Troponins negative. 2. D-dimer 0.28. PLAN: Plan of care was discussed with the patient in detail, she stated understanding. Job ID: [id number]
[2019-01-26] MEDS ORDERED: Aspirin 325 mg Enteric Coated Tablet PO SCH (09:00)
== END 2019-01-25 19:39 | disposition home or self-care (01) | DRG 287 ==
LOC: ERS 13:30 → 2NO 16:01
PROVIDERS: ADMIT Emergency Medicine; ATTEND Emergency Medicine
PROC: 4A023N7 Measurement of Cardiac Sampling and Pressure, Left Heart, Percutaneous Approach (ICD-10-PCS; principal; 2019-01-25)
PROC: B2151ZZ Fluoroscopy of Left Heart using Low Osmolar Contrast (ICD-10-PCS; 2019-01-25)
PROC: B2111ZZ Fluoroscopy of Multiple Coronary Arteries using Low Osmolar Contrast (ICD-10-PCS; 2019-01-25)
DX: R07.89 Other chest pain (principal); I12.9 Hypertensive chronic kidney disease with stage 1 through stage 4 chronic kidney disease, or unspecified chronic kidney disease; N18.3 Chronic kidney disease, stage 3 (moderate); E78.00 Pure hypercholesterolemia, unspecified; E66.9 Obesity, unspecified; K21.9 Gastro-esophageal reflux disease without esophagitis; D63.1 Anemia in chronic kidney disease; R94.31 Abnormal electrocardiogram [ECG] [EKG]; F32.9 Major depressive disorder, single episode, unspecified; F17.200 Nicotine dependence, unspecified, uncomplicated; Z85.3 Personal history of malignant neoplasm of breast; Z85.54 Personal history of malignant neoplasm of ureter; Z90.5 Acquired absence of kidney; Z79.82 Long term (current) use of aspirin; Z68.36 Body mass index [BMI] 36.0-36.9, adult
CPT/HCPCS: 36415; 36416; 76942; 80048; 85025; 85379; 93005; 93458; C1769; J1644; Q9967

== ENCOUNTER 2020-06-07 08:16 | Outpatient (CLI) | payer MEDICARE, BC ==
--- NOTE | 2020-06-07 10:35 | CT ---
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 The patient gives a history of breast cancer, status post left mastectomy and chemotherapy 25 years ago. COMPARISON: 10/11/2018. FINDINGS: The lung bases are clear. The liver, spleen, pancreas, and adrenal glands are normal. No calcified ga llstones are seen. Changes of left-sided nephrectomy are again noted. No calculi seen in the right kidney, right ureter, or the urinary bladder. No right-sided hydroureteronephrosis seen. Postcontrast images demonstrate n o evidence of right renal mass. There is normal contrast excretion into the right ureter and urinary bladder. No free air, free fluid, or lymphadenopathy seen in the abdomen or pelvis. There are vascular calcifi cations without evidence of aneurysmal dilatation of the abdominal aorta. The small bowel loops are n ot abnormally dilated. The patient is post hysterectomy. Colonic diverticulosis again seen. No osteol ytic or osteoblastic lesions are identified. IMPRESSION: No evidence of recurrent or metastatic disease. POS: [facility]
[2020-06-07] MEDS ORDERED: Iopamidol-370 76% 500 ML 1 ML ONE (12:23)
== END 2020-06-07 08:17 | disposition home or self-care (01) ==
LOC: BICCT 08:16
PROVIDERS: ATTEND Urology
DX: C64.2 Malignant neoplasm of left kidney, except renal pelvis (principal)
CPT/HCPCS: 74178; 82565; Q9967

== ENCOUNTER 2022-01-26 10:44 | Outpatient (CLI) | payer MEDICARE, BC ==
[2022-01-26 12:24] LABS: INR-International Normal Ratio 0.9; PTT 23.3 sec (22.0-33.0)
[2022-01-26 13:13] LABS: Anion Gap 16 mmol/L (10-20); BUN (Urea Nitrogen) 23 mg/dL (9.8-20.1); Calc. Creatinine Clearance 0 mL/min (70-130); Calcium 9.8 mg/dL (7.8-10.44); Carbon Dioxide 24 mmol/L (23-31); Chloride 104 mmol/L (98-107); Glucose 94 mg/dL (80-115); Potassium 4.8 mmol/L (3.5-5.1); Sodium 139 mmol/L (136-145)
[2022-01-27 00:07] LABS: SARS-CoV-2 PCR by NAA Not Detected (NotDetected)
== END 2022-01-26 10:45 | disposition home or self-care (01) ==
LOC: LABBT 10:44
PROVIDERS: ATTEND Surgery
DX: Z01.818 Encounter for other preprocedural examination (principal); M48.062 Spinal stenosis, lumbar region with neurogenic claudication; M54.16 Radiculopathy, lumbar region; Z20.822 Contact with and (suspected) exposure to COVID-19
CPT/HCPCS: 80048; 85610; 85730; 93005; U0003; U0005; 93010

== ENCOUNTER 2022-06-22 09:31 | Outpatient (CLI) | payer MEDICARE, BC ==
[~2022-06-22 09:31] MED LIST: Iopamidol-370 76% 500 ML 1 ML ONE
== END 2022-06-22 09:32 | disposition home or self-care (01) ==
LOC: BICCT 09:31
PROVIDERS: ATTEND Urology
DX: C64.2 Malignant neoplasm of left kidney, except renal pelvis (principal); K57.30 Diverticulosis of large intestine without perforation or abscess without bleeding; K46.9 Unspecified abdominal hernia without obstruction or gangrene; N30.90 Cystitis, unspecified without hematuria; Z90.5 Acquired absence of kidney
CPT/HCPCS: 71046; 74178; 82565; Q9967

== ENCOUNTER 2023-06-14 07:11 | Observation (INO) | payer MEDICARE, BC ==
[2023-06-10 13:36] VITALS: BMI 31.5
[2023-06-14] MEDS ORDERED: Bupivacaine 0.25% HCL 30 ML VIAL ONE (08:43)
[2023-06-14] MEDS ORDERED: EPINEPHrine 1 MG/ML AMP ONE (08:43)
[2023-06-14] MEDS ORDERED: Midazolam HCl 2 mg/2 ml Vial ONE (09:04)
[2023-06-14] MEDS ORDERED: SUGAMMADEX SODIUM 200 MG/2 ML VIAL ONE (09:05)
[2023-06-14] MEDS ORDERED: fentaNYL PF 100 MCG/2 ML SYRINGE ONE (09:05)
[2023-06-14] MEDS ORDERED: Sodium Chloride 0.9% 100 ML ONE (09:16)
[2023-06-14] MEDS ORDERED: CEFAZOLIN 2 GM VIAL ONE (09:16)
[2023-06-14] MEDS ORDERED: Glycopyrrolate 0.2 MG/ML 5 ML SYRINGE ONE (09:29)
[2023-06-14] MEDS ORDERED: Lidocaine 1% PF 5 ML VIAL ONE (09:29)
[2023-06-14] MEDS ORDERED: PROPOFOL 200 MG/20 ML VIAL ONE (09:29)
[2023-06-14] MEDS ORDERED: Dexamethasone 20 MG/5 ML VIAL ONE (09:29)
[2023-06-14] MEDS ORDERED: Rocuronium Bromide 10 MG/ML (10ML VIAL) ONE (09:29)
[2023-06-14] MEDS ORDERED: NEOSTIGMINE 3 MG/3 ML SYR 3 MG/3 ML SYRINGE ONE (09:29)
[2023-06-14] MEDS ORDERED: Ondansetron PF 4 MG/2 ML Vial ONE ×2 (09:29→11:35)
[2023-06-14] MEDS ORDERED: fentaNYL 50 mcg/mL 1 mL Vial ONE ×5 (11:35→13:13)
[2023-06-14] MEDS ORDERED: Promethazine HCl 25 MG/ML VIAL ONE (11:58)
[2023-06-14] MEDS ORDERED: Promethazine HCl 25 MG/ML VIAL IM PRN (13:27)
[2023-06-14] MEDS ORDERED: Ondansetron PF 4 MG/2 ML Vial IVP PRN ×2 (13:27→18:15)
[2023-06-14] MEDS ORDERED: Zolpidem Tartrate 5 MG TAB PO PRN (13:27)
[2023-06-14] MEDS ORDERED: Naloxone HCl 0.4 mg/ml Vial IV PRN (13:27)
[2023-06-14] MEDS ORDERED: diphenhydrAMINE 50 MG/ML VIAL IVP PRN (13:27)
[2023-06-14] MEDS ORDERED: diphenhydrAMINE 50 MG/ML VIAL IM PRN (13:27)
[2023-06-14] MEDS ORDERED: HYDROmorphone 10 mg/100 ml CADD IVPB PRN (13:27)
[2023-06-14] MEDS ORDERED: diphenhydrAMINE 25 MG CAP PO PRN (13:27)
[2023-06-14] MEDS ORDERED: Communication Order-Pharmacy FS SCH (13:30)
[2023-06-14] MEDS: D5 1/2 NS w/20 mEq KCL 1,000 ML IV SCH (18:36)
[2023-06-15] MEDS: D5 1/2 NS w/20 mEq KCL 1,000 ML IV SCH (02:36)
[2023-06-15 09:04] VITALS: BP 124/82; TEMP 98.5
[2023-06-15] MEDS ORDERED: HYDROcodone/Acetaminophen 10/325 mg Tablet PO PRN ×2 (10:04→10:05)
== END 2023-06-15 11:00 | disposition home or self-care (01) ==
LOC: SDC 07:11 → SURG B 11:56
PROVIDERS: ADMIT Surgery; ATTEND Surgery
PROC: 0WUF4JZ Supplement Abdominal Wall with Synthetic Substitute, Percutaneous Endoscopic Approach (ICD-10-PCS; principal; 2023-06-14)
DX: K45.8 Other specified abdominal hernia without obstruction or gangrene (principal); E78.5 Hyperlipidemia, unspecified; I10 Essential (primary) hypertension; Z90.710 Acquired absence of both cervix and uterus; Z79.82 Long term (current) use of aspirin; Z79.899 Other long term (current) drug therapy; Z88.6 Allergy status to analgesic agent; Z88.8 Allergy status to other drugs, medicaments and biological substances
CPT/HCPCS: 49659; C1713; G0378 ×2; J3010; J0171; J1100; J2250; J2405; J2550; J2704; J3480; J3490; S0020

== ENCOUNTER 2023-07-01 11:17 | Outpatient (CLI) | payer MEDICARE, BC | END 2023-07-01 11:18 | disposition home or self-care (01) | LOC: BICCT 11:17 | PROVIDERS: ATTEND Surgery | DX: M79.2 Neuralgia and neuritis, unspecified (principal); Z98.890 Other specified postprocedural states | CPT/HCPCS: 74177; 82565 ==

== ENCOUNTER 2023-07-22 09:28 | Outpatient (CLI) | payer MEDICARE, BC | END 2023-07-22 09:29 | disposition home or self-care (01) | LOC: BICCT 09:28 | PROVIDERS: ATTEND Surgery | DX: M62.00 Separation of muscle (nontraumatic), unspecified site (principal) | CPT/HCPCS: 74177; 82565 ==